=== PATIENT | female | born 1990 | race American Indian/Alaskan Native ===

== ENCOUNTER 2019-10-09 13:24 | Inpatient (IN) | payer MEDICAID ==
[2019-10-09] MEDS ORDERED: LACTATED RINGERS 1,000 ML IV ONE (14:07)
[2019-10-09] MEDS ORDERED: TERBUTALINE 1 MG/1 ML INJ SUB-Q PRN (14:30)
[2019-10-09] MEDS ORDERED: LACTATED RINGERS 500 ML IV ONE (14:59)
--- NOTE | 2019-10-09 15:41 | History and Physical Report ---
History of Present Illness Date of examination: 10/09/19 Date of admission: 10/09/19 13:25 Chief complaint: contractions History of present illness: 29yo at 32+6/7 weeks by LNMP with IRLANDA 11/28/19, twin gestation presents with contractions. Recent history of cervical shortening at [facility] with cervical length 1.8cm with funneling given fundal pressure. On presentation to OB triage she was noted to be 2cm/50%/-1. presentation is cephalic/transverse. PNC at [facility]. OB probem list includes twins, Obesity. She is GBS positive. 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 Family/Genetic History: none - Obstetrical History : 4 Medications and Allergies Allergies Allergy/AdvReac Type Severity Reaction Status Date / Time No Known Allergies Allergy Unverified 04/26/15 11:36 Active Meds: Active Medications Betamethasone Acet/Betameth SodPhos (Celestone Soluspan) 12 mg IM Q24HR BARBRA Ceftriaxone Sodium (Rocephin/Ns 2 Gm/100 Ml) 2 gm in 100 mls @ 200 mls/hr IV ONCE ONE; Protocol Stop: 10/10/19 14:59 Cefazolin Sodium (Ancef/Ns 1 Gm/50 Ml) 1 gm in 50 mls @ 100 mls/hr IV Q8HR BARBRA; Protocol Terbutaline Sulfate (Brethine) 0.25 mg SUB-Q Q20MIN PRN PRN Reason: CONTRACTIONS Last Admin: 10/09/19 14:39 Dose: 0.25 mg Documented by: - Vital Signs Vital signs: Vital Signs Pulse BP 100 H 107/71 10/09/19 13:47 10/09/19 13:47 Temp Pulse Resp BP Pulse Ox 98.6 F 110 H 16 107/71 100 10/09/19 13:49 10/09/19 15:30 10/09/19 13:49 10/09/19 13:49 10/09/19 15:30 - Physical Exam Breasts: Positive: deferred Cardiovascular: Regular rate Deep Tendon Reflex Grade: Normal +2 - Obstetrical FHR: category 1 FHR comments: FHT Category 1x both babies Uterine Contraction Monitor Mode: External Cervical Dilatation: 2 Cervical Effacement Percentage: 50 station: -3 Uterine Contraction Pattern: Regular Uterine Contraction Intensity: Mild Results All other labs normal. Assessment and Plan twins at 32+6/7 weeks, labor Plan: IV fluids abx steroids No mgso4 given twins and possibility of causing significant morbidity and/or mortality in the mother. send labs,urine continuous EFM of note, patient given rocephine in OB triage. plan is for ancef for gbs prophylaxis and PTL. Nursing offset plate preparation supervisor notified. Rachel NAPIER
[2019-10-09] MEDS: BETAMET ACET/BETAMET NA PH 6 MG/ML INJ 5 ML MDV IM SCH (15:49)
[2019-10-09 16:03] LABS: Bilirubin,Urine NEG (Negative); Blood,Urine NEG (Negative); Color,Urine Yellow (Yellow); Mucus,Urine 3+ /HPF; Protein,Urine <15 mg/dL mg/dL (Negative)
[2019-10-09 16:51] LABS: Basophils % (Auto) 0.2 % (0.0-1.8); Eosinophils % (Auto) 0.3 % (0.0-4.3); Hemoglobin 9.1 gm/dl (10.1-14.3); Lymphocytes # (Auto) 1.2 K/mm3 (1.2-5.4); Lymphocytes % (Auto) 11.8 % (13.4-35.0); Mean Corpuscular HGB Conc 34 % (30-34); Mean Corpuscular Volume 83 fl (79-97); Monocytes # (Auto) 0.7 K/mm3 (0.0-0.8); Monocytes % (Auto) 7.3 % (0.0-7.3); Platelet Count 265 K/mm3 (140-440); Red Blood Count 3.26 M/mm3 (3.65-5.03); Red Cell Distribution Width 13.3 % (13.2-15.2)
[2019-10-09] MEDS ORDERED: OXYTOCIN 20 UNIT/1000ML DRIP 20,000 MILLIUNITS/1,000 ML BAG IV ONE (18:12)
[2019-10-09] MEDS ORDERED: FAMOTIDINE 20 MG/2 ML INJ IV ONE ×4 (18:12→18:55)
[2019-10-09] MEDS ORDERED: ceFAZolin/Water 2 GM/20 ML 2 GM/20 ML SYRINGE IV ONE (18:12)
[2019-10-09] MEDS ORDERED: METOCLOPRAMIDE 10 MG/2 ML INJ ONE (18:12)
[2019-10-09] MEDS ORDERED: BICITRA ORAL LIQD 30ML PO ONE ×3 (18:19→18:55)
[2019-10-09] MEDS ORDERED: METOCLOPRAMIDE 10 MG/2 ML INJ IV ONE ×2 (18:19→18:55)
[2019-10-09] MEDS ORDERED: BICITRA ORAL LIQD 30ML ONE (18:20)
[2019-10-09] MEDS ORDERED: DEXMEDETOMIDINE 200 MCG/2 ML VIAL IV ONE (18:21)
--- NOTE | 2019-10-09 18:26 | Ultrasound Report ---
US OB limited INDICATION / CLINICAL INFORMATION: labor. COMPARISON: None available. FINDINGS: Intrauterine twin . Baby A Cephalic presentation. heart rate 155. Baby B Breech presentation. heart rate 166. IMPRESSION: 1. Viable intrauterine twin . One fetus is in cephalic presentation, while the other is in b reech presentation. Signer Name: Frankie Cole MD Signed: 10/09/2019 6:22 PM Workstation Name: [id number]
--- NOTE | 2019-10-09 18:41 | Anesthesia Day of Surgery ---
Anesthesia Day of Surgery - Day of Surgery Patient Examined: Yes Patient H&P Reviewed: Yes Patient is NPO: Yes Beta Blockers: No Cardiac Clearance: No Pulmonary Clearance: No Selvin's Test: N/A
[2019-10-09] MEDS ORDERED: ONDANSETRON 4 MG/2 ML INJ IV PRN (18:43)
--- NOTE | 2019-10-09 18:43 | Anesthesia Consultation ---
Anesthesia Consult and Med Hx Date of service: 10/09/19 - Airway Anesthetic Teeth Evaluation: Good ROM Head & Neck: Adequate Mental/Hyoid Distance: Adequate Mallampati Class: Class II Intubation Access Assessment: Probably Good - Pulmonary Exam CTA: Yes - Cardiac Exam Cardiac Exam: RRR - Pre-Operative Health Status ASA Pre-Surgery Classification: ASA2, Emergency Proposed Anesthetic Plan: Epidural - Pulmonary Hx Smoking: No Hx Asthma: No Hx Respiratory Symptoms: No SOB: No COPD: No Home Oxygen Therapy: No Hx Pneumonia: No Hx Sleep Apnea: No - Cardiovascular System Hx Hypertension: No Hx Coronary Artery Disease: No Hx Heart Attack/AMI: No Hx Angina: No Hx Percutaneous Transluminal Coronary Angioplasty (PTCA): No Hx Cardia Arrhythmia: No Hx Pacemaker: No Hx Internal Defibrillator: No Hx Valvular Heart Disease: No Hx Heart Murmur: No Hx Peripheral Vascular Disease: No - Central Nervous System Hx Neuromuscular Disorder: No Hx Seizures: No CVA: No Hx Back Pain: No Hx Psychiatric Problems: No - Gastrointestinal Hx Ulcer: No Hx Gastroesophageal Reflux Disease: Yes - Endocrine Hx Renal Disease: No Hx End Stage Renal Disease: No Hx Cirrhosis: No Hx Liver Disease: No Hx Insulin Dependent Diabetes: No Hx Non-Insulin Dependent Diabetes: No Hx Thyroid Disease: No Hx Hypothyroidism: No Hx Hyperthyroidism: No - Hematic Hx Anemia: No Hx Sickle Cell Disease: No - Other Systems Hx Alcohol Use: No Hx Substance Use: No Hx Cancer: No Hx Obesity: Yes
[2019-10-09] MEDS ORDERED: SODIUM CHLORIDE 0.9% 500 ML 500 ML IV ONE (18:44)
--- NOTE | 2019-10-09 18:47 | Progress Note ---
Subjective - Subjective Date of service: 10/09/19 Interval history: patient in labor cervix 4cm/50%/-2 plan for operative delivery NPO, donations attendant to OR for procedure Hb 9.1- 2 units PRBCs on hold maternal/ status reassuring Elaine Hui MD Objective - Vital Signs Vital Signs: Vital Signs - 12hr 10/09/19 10/09/19 10/09/19 13:47 13:49 15:10 Temperature 98.6 F 98.2 F Pulse Rate 100 H 100 H Respiratory 16 Rate Blood Pressure 107/71 Blood Pressure 107/71 [Left] O2 Sat by Pulse Oximetry 10/09/19 10/09/19 10/09/19 15:15 15:20 15:25 Temperature Pulse Rate 118 H 115 H 116 H Respiratory Rate Blood Pressure Blood Pressure [Left] O2 Sat by Pulse 100 100 100 Oximetry 10/09/19 10/09/19 10/09/19 15:30 15:35 15:40 Temperature Pulse Rate 110 H 115 H 110 H Respiratory Rate Blood Pressure Blood Pressure [Left] O2 Sat by Pulse 100 100 100 Oximetry 10/09/19 10/09/19 10/09/19 15:45 15:57 16:02 Temperature Pulse Rate 114 H 106 H 114 H Respiratory Rate Blood Pressure Blood Pressure [Left] O2 Sat by Pulse 100 100 100 Oximetry 10/09/19 10/09/19 10/09/19 16:07 16:12 16:17 Temperature Pulse Rate 107 H 107 H 109 H Respiratory Rate Blood Pressure Blood Pressure [Left] O2 Sat by Pulse 100 99 99 Oximetry 10/09/19 10/09/19 10/09/19 16:22 16:27 16:32 Temperature Pulse Rate 120 H 108 H 102 H Respiratory Rate Blood Pressure Blood Pressure [Left] O2 Sat by Pulse 100 99 99 Oximetry 10/09/19 10/09/19 10/09/19 16:37 16:42 16:47 Temperature Pulse Rate 95 H 99 H 99 H Respiratory Rate Blood Pressure Blood Pressure [Left] O2 Sat by Pulse 99 99 99 Oximetry 10/09/19 10/09/19 10/09/19 16:52 16:57 17:01 Temperature Pulse Rate 103 H 120 H 100 H Respiratory Rate Blood Pressure 139/77 Blood Pressure [Left] O2 Sat by Pulse 99 100 Oximetry 10/09/19 10/09/19 10/09/19 17:02 17:07 17:12 Temperature Pulse Rate 112 H 119 H 119 H Respiratory Rate Blood Pressure Blood Pressure [Left] O2 Sat by Pulse 99 99 99 Oximetry 10/09/19 10/09/19 10/09/19 17:17 17:22 17:42 Temperature Pulse Rate 97 H 103 H 125 H Respiratory Rate Blood Pressure Blood Pressure [Left] O2 Sat by Pulse 99 98 99 Oximetry 10/09/19 10/09/19 10/09/19 17:47 17:52 17:57 Temperature Pulse Rate 125 H 114 H 104 H Respiratory Rate Blood Pressure Blood Pressure [Left] O2 Sat by Pulse 99 98 99 Oximetry 10/09/19 10/09/19 10/09/19 18:02 18:07 18:12 Temperature Pulse Rate 113 H 126 H 117 H Respiratory Rate Blood Pressure 119/77 Blood Pressure [Left] O2 Sat by Pulse 99 98 99 Oximetry 10/09/19 10/09/19 10/09/19 18:17 18:22 18:26 Temperature Pulse Rate 137 H 125 H 130 H Respiratory Rate Blood Pressure 125/78 Blood Pressure [Left] O2 Sat by Pulse 100 99 Oximetry 10/09/19 10/09/19 10/09/19 18:27 18:28 18:30 Temperature Pulse Rate 112 H 117 H 117 H Respiratory Rate Blood Pressure 123/80 102/57 Blood Pressure [Left] O2 Sat by Pulse 99 Oximetry 10/09/19 10/09/19 10/09/19 18:32 18:34 18:36 Temperature Pulse Rate 107 H 96 H 111 H Respiratory Rate Blood Pressure 114/64 116/65 128/72 Blood Pressure [Left] O2 Sat by Pulse 98 Oximetry 10/09/19 10/09/19 10/09/19 18:38 18:39 18:40 Temperature Pulse Rate 115 H 106 H 100 H Respiratory Rate Blood Pressure 122/70 103/72 Blood Pressure [Left] O2 Sat by Pulse 98 Oximetry 10/09/19 18:42 Temperature Pulse Rate 109 H Respiratory Rate Blood Pressure 109/78 Blood Pressure [Left] O2 Sat by Pulse Oximetry - Labs Labs: Abnormal Labs 10/09/19 10/09/19 16:13 16:13 RBC 3.26 L Hgb 9.1 L Hct 27.0 L Lymph % (Auto) 11.8 L Seg Neutrophils % 80.4 H Seg Neutrophils # 8.1 H Crossmatch See Detail Laboratory Results - last 24 hr 10/09/19 10/09/19 10/09/19 16:13 16:13 Unknown WBC 10.1 RBC 3.26 L Hgb 9.1 L Hct 27.0 L MCV 83 MCH 28 MCHC 34 RDW 13.3 Plt Count 265 Lymph % (Auto) 11.8 L Tompkins % (Auto) 7.3 Eos % (Auto) 0.3 Baso % (Auto) 0.2 Lymph # 1.2 Tompkins # 0.7 Eos # 0.0 Baso # 0.0 Seg Neutrophils % 80.4 H Seg Neutrophils # 8.1 H Urine Color Yellow Urine Turbidity Slightly-cloudy Urine pH 6.0 Ur Specific Patten 1.024 Urine Protein <15 mg/dl Urine Glucose (UA) Neg Urine Ketones Neg Urine Blood Neg Urine Nitrite Neg Urine Bilirubin Neg Urine Urobilinogen 2.0 Ur Leukocyte Esterase Tr Urine WBC (Auto) 3.0 Urine RBC (Auto) 2.0 U Epithel Cells (Auto) 11.0 Urine Mucus 3+ Blood Type O POSITIVE Antibody Screen Negative Crossmatch See Detail
[2019-10-09] MEDS ORDERED: ceFAZolin/STERILE WATER 2 GM/20 ML SYRINGE IV ONE (18:59)
[2019-10-09] MEDS ORDERED: METOCLOPRAMIDE 10 MG/2 ML INJ IV NR (19:00)
[2019-10-09] MEDS ORDERED: OXYTOCIN 20 UNIT/1000ML DRIP 20 UNITS/1,000 ML BAG IV SCH ×3 (19:00→21:00)
[2019-10-09] MEDS ORDERED: ceFAZolin/Water 2 GM/20 ML 2 GM/20 ML SYRINGE IV NR (19:00)
[2019-10-09] MEDS ORDERED: LACTATED RINGERS 1,000 ML IV SCH ×2 (19:00)
[2019-10-09] MEDS ORDERED: SODIUM CHLORIDE 0.9% IRR 1,500 ML BOTTLE IR ONE (19:11)
[2019-10-09] MEDS ORDERED: WATER FOR IRRIG STERILE 1,500 ML BOTTLE IR ONE (19:11)
[2019-10-09] MEDS ORDERED: LIDOCAINE MPF (2%) 20 MG/1 ML VIAL 5 ML ONE ×2 (19:15)
[2019-10-09] MEDS ORDERED: ONDANSETRON 4 MG/2 ML INJ ONE (19:29)
[2019-10-09] MEDS ORDERED: KETOROLAC 30 MG/1 ML INJ ONE (19:29)
[2019-10-09] MEDS ORDERED: BUPIVACAINE/PF (0.5%) 5 MG/1 ML 30 ML VIAL INFILTRATI ONE (19:48)
[2019-10-09] MEDS ORDERED: WITCH HAZEL/ GLYCERIN PAD TP PRN (20:08)
[2019-10-09] MEDS ORDERED: LANOLIN/ZINC/DIMETHICONE (LANSINOH) 7 GM TP PRN (20:08)
[2019-10-09] MEDS ORDERED: NALOXONE 0.4 MG/1 ML INJ IV PRN (20:08)
[2019-10-09] MEDS ORDERED: MAGNESIUM HYDROXIDE (MOM) ORAL LIQD UDC PO PRN (20:08)
[2019-10-09] MEDS ORDERED: SIMETHICONE 80 MG CHEW TAB PO PRN (20:08)
[2019-10-09] MEDS ORDERED: MORPHINE 2 MG/1 ML INJ IV PRN (20:08)
--- NOTE | 2019-10-09 20:17 | Procedure Note ---
OB Delivery Note - Delivery Date of Delivery: 10/09/19 Surgeon: SARA GARCIA Estimated blood loss: other (900ml) - Section Preop diagnosis: other (twin IUP at 32+6/7 weeks, active labor(cephalic/breech)) Postop diagnosis: same section procedure: primary low transverse Disposition: PACU Complications: none Narrative: Preoperative diagnosis: Twin IUP at 32+6/7 weeks, labor Postoperative diagnosis: same Procedure: primary low transverse section via pfannenstiel incision Surgeon : Dr Sara Garcia Assist: scrub Anesthesia: spinal Complications: none Drains: balderas to gravity EBL 900ml IV fluids: 9000ml Urine output: 200ml Findings:normal uterus, tubes and ovaries bilaterally. Viable female A,weight 2127gms in cephalic presentation, 8,8; Viable female B weight 1962gms in breech presentation, 8,9. Procedure: informed consent obtained in 2003 with family present. All questions and concerns addressed. R/B/C reviewed. She was taken to the OR where excellent spinal anesthesia was given. She was placed in the dorsal supine position with a leftward tilt. She was prepped and draped in a sterile fashion. A time out was verified. An Sue clamp was used to assure adequate analgesia. A Pfannenstiel skin incision was made, taken down through the underlying fascia sharply and extended laterally with curved Gordon scissors. The superior and inferior aspect of the fascial incision was grasped with Anjum clamps and the rectus muscles di ssected off sharply. The abdomen was entered sharply in the midline and extended laterally and inferiorly sharply with good visualization of the underlying structures. The vesicouterine peritoneum was grasped with Djib[place]ian forceps and incised sharply with Metzenbaum scissors and extended laterally sharply. The uterine incision was made sharply with a scalpel, taken down to the amnion and extended inferiorly and superiorly bluntly. The bladder blade removed. Baby A delivered atraumatically in cephalic presentation, no nuchal cord. Spontaneous cry at delivery.The cord was clamped and cut and baby handed to waiting NICU staff. Baby B delivered atraumatically in breech presentation,no nuchal cord. Spontaneous cry at delivery. The cord was clamped and cut and baby handed to waiting NICU staff. Two intact placentas each with three vessel cord delivered manually. The uterus cleared of all clots and debris. The uterus was exteriorized and the uterine incision closed with 3 layers of 0-Vicryl. The abdomen was irrigated with warm normal saline and the uterus placed back in the abdomen. A second look at the uterine incision assured excellent hemostasis. The peritoneum closed with 3-0 vicryl. The rectus muscles approximated with 3- 0 vicryl with good hemostasis. The fascia closed with 0-Vicryl in the usual fashion, and the underlying structures closed with interrupted suture of O-Vicryl. The skin closed with monocryl and a pressure dressing applied. Mom and baby stable to . Patient hemodynamically stable in PACU. EBL 900ml Rachel NAPIER - B at 1 minute: 8 at 5 minutes: 9 Infant Gender: Female (weight 1962) A at 1 minute: 8 at 5 minutes: 8 Gender: Female (weight 2127gms)
--- NOTE | 2019-10-09 20:51 | Post Anesthesia Evaluation ---
- Post Anesthesia Evaluation Patient Participated: Yes Airway Patent: Yes Stable Respiratory Function: Yes Nausea/Vomiting: Yes Temp > 96.8F: Yes Pain Manageable: Yes Adequeate Hydration: Yes Anesthesia Complications: No Block Receding Appropriately: Yes Patient on Ventilator: No
[2019-10-09] MEDS: HYDROmorphone 1 MG/1 ML INJ IV PRN ×3 (20:52→22:26)
[2019-10-09] MEDS: MORPHINE 4 MG/1 ML INJ IV PRN (22:47)
[2019-10-10] MEDS: ceFAZolin/NS 1 GM/50 ML 1 GM/50 ML BAG IV SCH ×3 (02:20→17:27)
[2019-10-10] MEDS: HYDROmorphone 1 MG/1 ML INJ IV PRN (02:35)
[2019-10-10] MEDS: MORPHINE 4 MG/1 ML INJ IV PRN (05:47)
[2019-10-10] MEDS ORDERED: D5W/LACTATED RINGERS 1,000 ML IV SCH (06:00)
[2019-10-10 08:21] LABS: Hematocrit 25.6 % (30.3-42.9); Hemoglobin 8.7 gm/dl (10.1-14.3)
[2019-10-10] MEDS: HYDROcodone/ACETAMINOPHEN 5-325 MG TAB PO PRN ×3 (08:33→21:02)
[2019-10-10] MEDS: IBUPROFEN 800 MG TAB PO PRN ×2 (11:07→17:26)
--- NOTE | 2019-10-10 11:31 | Progress Note ---
Assessment and Plan A: /postop day 1 S/P LTCS. Anemia. P: Encouraged ambulation. Advance diet after passing gas. Continue current management. Subjective - Subjective Date of service: 10/10/19 Principal diagnosis: /postop day 1 S/P LTCS Interval history: /postop day 1 S/P LTCS. Doing well. Voiding without difficulty, ambulating well. No flatus yet. Tolerating liquid diet. Patient reports: appetite normal, voiding normally, pain well controlled, ambulating normally, no dizzy ambulation, no flatus, no nauseated : doing well, in NICU Objective - Vital Signs Latest vital signs: Vital Signs Temp Pulse Resp BP BP Pulse Ox 10/10/19 09:20 98.0 F 64 18 101/64 100 10/10/19 05:07 98.2 F 70 20 104/62 97 10/09/19 22:00 98.2 F 69 18 117/84 115/75 99 10/09/19 21:45 83 14 124/81 99 10/09/19 21:30 76 15 117/78 96 10/09/19 21:15 77 17 117/78 97 10/09/19 21:00 84 17 117/80 97 10/09/19 20:51 81 15 111/73 99 10/09/19 20:45 84 12 113/71 98 10/09/19 20:40 92 H 16 112/67 97 10/09/19 20:37 96 H 14 117/72 96 10/09/19 20:33 98.6 F 125 H 18 114/62 98 10/09/19 18:42 109 H 109/78 10/09/19 18:40 100 H 103/72 10/09/19 18:39 106 H 98 10/09/19 18:38 115 H 122/70 10/09/19 18:36 111 H 128/72 10/09/19 18:34 96 H 116/65 98 10/09/19 18:32 107 H 114/64 10/09/19 18:30 117 H 102/57 10/09/19 18:28 117 H 123/80 10/09/19 18:27 112 H 99 10/09/19 18:26 130 H 125/78 10/09/19 18:22 125 H 99 10/09/19 18:17 137 H 100 10/09/19 18:12 117 H 99 10/09/19 18:07 126 H 98 10/09/19 18:02 113 H 119/77 99 10/09/19 17:57 104 H 99 10/09/19 17:52 114 H 98 10/09/19 17:47 125 H 99 10/09/19 17:42 125 H 99 10/09/19 17:22 103 H 98 10/09/19 17:17 97 H 99 10/09/19 17:12 119 H 99 10/09/19 17:07 119 H 99 10/09/19 17:02 112 H 99 10/09/19 17:01 100 H 139/77 10/09/19 16:57 120 H 100 10/09/19 16:52 103 H 99 10/09/19 16:47 99 H 99 10/09/19 16:42 99 H 99 10/09/19 16:37 95 H 99 10/09/19 16:32 102 H 99 10/09/19 16:27 108 H 99 10/09/19 16:22 120 H 100 10/09/19 16:17 109 H 99 10/09/19 16:12 107 H 99 10/09/19 16:07 107 H 100 10/09/19 16:02 114 H 100 10/09/19 15:57 106 H 100 10/09/19 15:45 114 H 100 10/09/19 15:40 110 H 100 10/09/19 15:35 115 H 100 10/09/19 15:30 110 H 100 10/09/19 15:25 116 H 100 10/09/19 15:20 115 H 100 10/09/19 15:15 118 H 100 10/09/19 15:10 98.2 F 10/09/19 13:49 98.6 F 100 H 16 107/71 10/09/19 13:47 100 H 107/71 Intake and Output 10/09/19 10/10/19 10/10/19 23:59 07:59 15:59 Intake Total 1300 290 Output Total 550 1200 600 Balance 750 -910 -600 Intake: IV 1300 50 ANCEF/NS 1 GM/50 ML 1 gm 50 In 50 ml @ 100 mls/hr IV Q8HR [facility] Rx#:[id number] Oral 240 Output: Urine 550 1200 600 Indwelling Catheter 175 1200 Void 600 Other: Total, Intake Amount 240 Total, Output Amount 175 1200 600 # Voids Void 1 Estimated Blood Loss 900 - Exam Cardiovascular: Present: Regular rate, Normal S1, Normal S2 Lungs: Present: Clear to auscultation Abdomen: Present: normal appearance, soft, normal bowel sounds. Absent: distention, tenderness, guarding, rigidity Uterus: Present: normal, firm, fundal height below umbilicus. Absent: bogginess, tenderness Extremities: Present: normal. Absent: tenderness, edema Incision: Present: normal, dry, dressed - Labs Labs: Abnormal lab results 10/09/19 10/09/19 10/10/19 Range/Units 16:13 16:13 07:54 RBC 3.26 L (3.65-5.03) M/mm3 Hgb 9.1 L 8.7 L (10.1-14.3) gm/dl Hct 27.0 L 25.6 L (30.3-42.9) % Lymph % (Auto) 11.8 L (13.4-35.0) % Seg Neutrophils % 80.4 H (40.0-70.0) % Seg Neutrophils # 8.1 H (1.8-7.7) K/mm3 Crossmatch See Detail
[2019-10-10] MEDS ORDERED: cefTRIAXone/NS 2 GM/100 ML 2 GM/100 ML BAG IV ONE (14:30)
[2019-10-10] MEDS: BETAMET ACET/BETAMET NA PH 6 MG/ML INJ 5 ML MDV IM SCH (17:25)
[2019-10-10] MEDS ORDERED: FERROUS SULFATE 325 MG TAB PO SCH (22:00)
[2019-10-11] MEDS: IBUPROFEN 800 MG TAB PO PRN ×2 (01:22→16:05)
[2019-10-11] MEDS: HYDROcodone/ACETAMINOPHEN 5-325 MG TAB PO PRN ×3 (05:27→21:15)
[2019-10-11] MEDS: FERROUS SULFATE 325 MG TAB PO SCH ×2 (09:08→21:15)
[2019-10-11] MEDS ORDERED: IRON DEXTRAN COMPLEX 100 MG/2 ML INJ IM NR (10:00)
--- NOTE | 2019-10-11 10:17 | Progress Note ---
Assessment and Plan - Patient Problems (1) S/P primary low transverse Current Visit: Yes Status: Acute Plan to address problem: POD 2 - stable Continue routine postop orders Ambulation encouraged, as tolerated Abdominal binder ordered Discharge to home 10/12/19 Follow-up at [facility] as needed or in 1 week for incision check (2) delivery Current Visit: Yes Status: Acute (3) Anemia due to blood loss, acute Current Visit: Yes Status: Acute Plan to address problem: Asymptomatic Infed 100mg IM x1 given Ferrous sulfate increased from 325 mg PO daily to 325 mg PO BID Encouraged iron-rich foods Subjective - Subjective Date of service: 10/11/19 Principal diagnosis: POD #2; s/p Primary LTCS; Twin IUP Interval history: see [facility] - H&P, OB Progress note, OB Delivery Procedure Note and PP/BANQUET CHEF Progress Note Patient reports: appetite normal, voiding normally, pain well controlled, flatus, ambulating normally, no dizzy ambulation, no bowel movement [place]: in NICU Objective - Vital Signs Latest vital signs: Vital Signs Temp Pulse Resp BP BP Pulse Ox 10/11/19 08:35 98.2 F 81 20 105/65 10/11/19 05:42 97.7 F 88 20 106/66 97 10/11/19 01:22 18 10/11/19 01:10 98.2 F 102 H 18 99/62 97 10/10/19 16:01 97.3 F L 67 18 116/63 100 10/10/19 15:03 20 10/10/19 11:56 97.6 F 74 18 113/65 100 Intake and Output 10/10/19 10/11/19 10/11/19 23:59 07:59 15:59 Intake Total 50 480 240 Output Total 650 Balance -600 480 240 Intake: IV 50 ANCEF/NS 1 GM/50 ML 1 gm 50 In 50 ml @ 100 mls/hr IV Q8HR [facility] Rx#:[id number] Oral 120 240 Intake, Free Water 360 Output: Urine 650 Void 650 Other: Total, Intake Amount 120 240 Total, Output Amount 650 # Voids Void 1 1 - Exam Cardiovascular: Present: Regular rate Lungs: Present: Clear to auscultation Abdomen: Present: normal appearance, soft Vulva: both: normal Uterus: Present: normal, firm, fundal height below umbilicus Extremities: Present: normal Incision: Present: normal, dry, intact Comments: scant lochia
--- NOTE | 2019-10-11 10:22 | Discharge Summary ---
Providers - Providers Date of Admission: 10/09/19 18:54 Date of discharge: 10/12/19 Attending physician: SARA GARCIA MD Primary care physician: SARA GARCIA MD Hospitalization Reason for admission: active labor, IUP - Delivery: Procedure: primary low transverse Episiotomy: none Laceration: none Incision: normal, dry, intact Other procedures: none complications: none Discharge diagnosis: delivery baby: twins Hospital course: Uncomplicated Condition at discharge: Stable Disposition: [place]-[id number] TO HOME OR SELFCARE - Discharge Diagnoses (1) S/P primary low transverse Status: Acute (2) delivery Status: Acute (3) Anemia due to blood loss, acute Status: Acute Comment: Asymptomatic Continue iron therapy Eat iron-rich foods Plan - Discharge Medications Prescriptions: Ferrous Sulfate [Feosol 325 MG tab] 325 mg PO BID #60 tablet HYDROcodone/ACETAMINOPHEN [Hydrocodone-Acetamin 5-300 mg] 1 each PO Q6HR #20 tablet Ibuprofen [Ibu-200] 600 mg PO Q6HR #90 tablet Ibuprofen [Motrin 800 MG tab] 800 mg PO Q6H PRN #30 tablet PRN Reason: Pain, Mild (1-3) - Provider Discharge Summary Activity: routine, no sex for 6 weeks, no heavy lifting 4 weeks, no strenuous exercise Diet: routine Instructions: routine Additional instructions: [] Smoking cessation referral if applicable(refer to patient education folder for contact #) [] Refer to [facility]'s [facility] Booklet Call your doctor immediately for: * Fever > 100.5 * Heavy vaginal bleeding ( >1 pad per hour) * Severe persistent headache * Shortness of breath * Reddened, hot, painful area to leg or breast * Drainage or odor from incision. * Keep incision clean and dry at all times and follow doctor's instructions regarding bathing/showering - Follow up plan Follow up: SARA GARCIA MD [Primary Care Provider] - 7 Days (Follow-up at [facility] as needed or in 1 week for incision check)
[2019-10-12] MEDS: HYDROcodone/ACETAMINOPHEN 5-325 MG TAB PO PRN (03:37)
[2019-10-12] MEDS: IBUPROFEN 800 MG TAB PO PRN (04:58)
[2019-10-12] MEDS ORDERED: DIPHtheria,PERTUSSIS(ACELL),TETANUS VACCINE/PF 0.5 ML VIAL IM ONE (06:00)
[2019-10-12 09:53] VITALS: BP 108/81
[2019-10-12] MEDS: FERROUS SULFATE 325 MG TAB PO SCH (10:39)
== END 2019-10-12 10:00 | disposition home or self-care (01) | DRG 765 ==
LOC: TRG 13:24 → LD 13:24 → TRG 13:25 → LD 13:25 → APU 13:26 → OBSVTOIN 18:54 → OB 10-10 00:04
PROVIDERS: ADMIT Obstetrics & Gynecology; ATTEND Obstetrics & Gynecology
PROC: 10D00Z1 Extraction of Products of Conception, Low, Open Approach (ICD-10-PCS; principal; 2019-10-09)
PROC: 3E0234Z Introduction of Serum, Toxoid and Vaccine into Muscle, Percutaneous Approach (ICD-10-PCS; 2019-10-12)
DX: O60.14X1 Preterm labor third trimester with preterm delivery third trimester, fetus 1 (principal); D62 Acute posthemorrhagic anemia; O60.14X2 Preterm labor third trimester with preterm delivery third trimester, fetus 2; O99.824 Streptococcus B carrier state complicating childbirth; O99.214 Obesity complicating childbirth; E66.9 Obesity, unspecified; K21.9 Gastro-esophageal reflux disease without esophagitis; O90.81 Anemia of the puerperium; O32.1XX2 Maternal care for breech presentation, fetus 2; Z37.2 Twins, both liveborn; O99.62 Diseases of the digestive system complicating childbirth; Z3A.32 32 weeks gestation of pregnancy; O30.003 Twin pregnancy, unspecified number of placenta and unspecified number of amniotic sacs, third trimester; Z23 Encounter for immunization; Z90.49 Acquired absence of other specified parts of digestive tract
CPT/HCPCS: 36415; 76815; 81001; 85014; 85018; 85025; 86850; 86900; 86901; 86920; 88307; 90471; 90715; G0378; A6250; J0690; J0696; J0702; J1170; J1750; J1885; J2270; J2405; J2590; J2765; J3105; J3490; J7120; J7121